=== PATIENT | female | born 1990 | race Caucasian/White ===

== ENCOUNTER 2022-12-17 17:02 | Inpatient (IN) | payer MEDICAID ==
[2022-12-17] MEDS ORDERED: Ondansetron 4 MG Tab.DIS PO PRN ×2 (18:09→18:13)
[2022-12-17] MEDS ORDERED: Sennosides/Docusate Sodium 50-8.6 MG Tab PO PRN (18:09)
[2022-12-17] MEDS ORDERED: Magnesium Hydroxide 400 MG/5 ML Susp 30 ML Cup PO PRN (18:09)
[2022-12-17] MEDS ORDERED: Acetaminophen 325 MG Tab PO PRN ×2 (18:09→18:13)
[2022-12-17] MEDS ORDERED: Ondansetron 4 MG/2 ML SDV IV PRN (18:13)
[2022-12-17] MEDS ORDERED: Melatonin 3 MG Tab PO PRN (18:13)
[2022-12-17] MEDS: Ondansetron 4 MG/2 ML SDV IV PRN (18:33)
[2022-12-17] MEDS ORDERED: Ampicillin/Sulbactam Na 3 GM in Sodium Chloride 0.9% 100 ML IV SCH (19:00)
[2022-12-17] MEDS: Sodium Chloride 0.9% 1,000 ML IV SCH (19:36)
[2022-12-17] MEDS: Meropenem 1 GM in Sodium Chloride 0.9% 100 ML IV SCH (19:38)
[2022-12-17] MEDS: Pantoprazole 40 MG Tab.CR PO SCH (19:39)
[2022-12-17] MEDS: fentaNYL 50 MCG/ML SDV IVPUSH PRN (19:39)
[2022-12-17] MEDS: Sucralfate 1 GM Tab PO SCH (21:29)
[2022-12-17] MEDS ORDERED: Ketorolac 30 MG/ML SDV IM ONE (22:00)
[2022-12-18] MEDS: fentaNYL 50 MCG/ML SDV IVPUSH PRN (01:18)
[2022-12-18] MEDS: Ondansetron 4 MG/2 ML SDV IV PRN (01:18)
[2022-12-18] MEDS ORDERED: hydrOXYzine HCL 100 MG/2 ML SDV IM PRN (01:31)
[2022-12-18] MEDS ORDERED: LORazepam 2 MG/ML SDV IVPUSH ONE (02:45)
[2022-12-18] MEDS ORDERED: HYDROmorphone/Normal Saline 6 MG/30 ML PCA Vial IV PRN (03:59)
[2022-12-18] MEDS: Meropenem 1 GM in Sodium Chloride 0.9% 100 ML IV SCH ×3 (04:13→20:01)
[2022-12-18] MEDS: Sodium Chloride 0.9% 1,000 ML IV SCH (04:13)
[2022-12-18 04:35] LABS: BASOPHILS ABSOLUTE AUTO 0.05 K/uL (0.00-0.10); BASOPHILS PERCENT AUTO 0.3 % (0.1-1.3); EOSINOPHILS ABSOLUTE AUTO 0.05 K/uL (0.00-0.40); EOSINOPHILS PERCENT AUTO 0.3 % (0.0-5.4); HEMATOCRIT 33.4 % (34.3-46.0); HEMOGLOBIN 10.1 g/dL (11.2-15.5); IMMATURE GRAN PERCENT AUTO 0.5 % (0.0-0.7); LYMPHOCYTES ABSOLUTE AUTO 1.16 K/uL (0.8-3.3); LYMPHOCYTES PERCENT AUTO 6.1 % (11.4-47.7); MEAN CORPUSCULAR HEMOGLOBIN 21.4 pg (31.6-35.5); MEAN CORPUSCULAR HGB CONC 30.2 g/dL (31.6-35.5); MEAN CORPUSCULAR VOLUME 70.6 fL (81.4-99.0); MONOCYTES ABSOLUTE AUTO 1.05 K/uL (0.20-0.90); MONOCYTES PERCENT AUTO 5.5 % (3.3-12.6); NEUTROPHILS PERCENT AUTO 87.3 % (40.0-78.1); PLATELET COUNT,PLT 333 K/uL (130-375); RED BLOOD CELL COUNT 4.73 M/uL (3.77-5.24)
[2022-12-18 04:42] LABS: CALCIUM 8.2 mg/dL (8.5-10.1); CREATININE 0.9 mg/dL (0.6-1.0); EST CRCL DRUG DOSING (CG) 67.09 mL/min; POTASSIUM,K 3.6 mmol/L (3.6-5.2)
[2022-12-18 04:47] LABS: ANION GAP 12.6 mmol/L (5.0-14.0)
[2022-12-18] MEDS ORDERED: Prochlorperazine 10 MG/2 ML SDV IVPUSH ONE (04:58)
[2022-12-18] MEDS: Sucralfate 1 GM Tab PO SCH (05:28)
[2022-12-18] MEDS: Pantoprazole 40 MG Tab.CR PO SCH (07:28)
[2022-12-18] MEDS ORDERED: Ketamine 500 MG/5 ML MDV IV SCH ×3 (07:30→08:00)
[2022-12-18 07:41] LABS: A/G RATIO 0.9 (1.2-2.2); BILIRUBIN DIRECT 0.23 mg/dL (0.0-0.2); BILIRUBIN INDIRECT 0.47; BILIRUBIN TOTAL 0.7 mg/dL (0.2-1.0); PROTEIN TOTAL,TP 6.4 g/dL (6.4-8.2)
[2022-12-18] MEDS ORDERED: Ketamine 15 MG in Sodium Chloride 0.9% 19.85 ML IV SCH (08:00)
[2022-12-18] MEDS ORDERED: Succinylcholine 200 MG/10 ML MDV ONE (08:32)
[2022-12-18] MEDS ORDERED: Glycopyrrolate 0.2 MG/ML 5 ML MDV ONE (08:32)
[2022-12-18] MEDS ORDERED: Neostigmine Methylsulfate 1 MG/ML 5 ML Syringe ONE (08:32)
[2022-12-18] MEDS ORDERED: Propofol 200 MG/20 ML SDV ONE (08:32)
[2022-12-18] MEDS ORDERED: Ondansetron 4 MG/2 ML SDV ONE (08:32)
[2022-12-18] MEDS ORDERED: Rocuronium 50 MG/5 ML Vial ONE (08:32)
[2022-12-18] MEDS ORDERED: Dexamethasone 4 MG/ML SDV ONE (08:32)
[2022-12-18] MEDS ORDERED: fentaNYL 250 MCG/5 ML SDV ONE ×2 (08:34→09:56)
[2022-12-18] MEDS ORDERED: Ketorolac 30 MG/ML SDV ONE (08:51)
[2022-12-18] MEDS ORDERED: Meropenem 500 MG SDV ONE (09:31)
[2022-12-18] MEDS ORDERED: Sodium Chloride 0.9% 10 ML ONE (09:31)
[2022-12-18] MEDS ORDERED: Lactated Ringers 1,000 ML ONE (09:34)
[2022-12-18] MEDS: Bupivacaine 0.5%/EPINEPHrine 1:200,000 50 ML MDV ONE ×2 (10:03→10:26)
[2022-12-18] MEDS: Lidocaine 1% 50 ML MDV ONE ×2 (10:04→10:26)
[2022-12-18] MEDS ORDERED: Sucralfate 1 GM Tab PO SCH (11:00)
[2022-12-18] MEDS: Hydrochlorothiazide 25 MG Tab PO SCH (11:59)
[2022-12-18] MEDS ORDERED: Ondansetron 4 MG/2 ML SDV IVPUSH PRN (12:13)
[2022-12-18] MEDS ORDERED: Buprenorphine/Naloxone 2-0.5 MG Tab.SL SL ONE (12:30)
[2022-12-18] MEDS: Buprenorphine/Naloxone 2-0.5 MG Tab.SL SL SCH (12:33)
[2022-12-18] MEDS ORDERED: Pantoprazole 40 MG Vial IV SCH (14:00)
[2022-12-18] MEDS: Lactated Ringers 1,000 ML IV SCH (14:12)
[2022-12-18] MEDS ORDERED: HYDROmorphone 1 MG/ML Syringe IV PRN (15:44)
[2022-12-18] MEDS: traMADol 50 MG Tab PO PRN ×2 (15:55→21:38)
[2022-12-18] MEDS: Acetaminophen 1,000 MG in Premix Bag 1 BAG IV SCH ×2 (15:57→21:38)
[2022-12-18] MEDS: Ibuprofen 600 MG Tab PO SCH ×2 (17:39→23:36)
[2022-12-19] MEDS: Lactated Ringers 1,000 ML IV SCH ×3 (00:27→20:42)
[2022-12-19] MEDS: Meropenem 1 GM in Sodium Chloride 0.9% 100 ML IV SCH ×3 (04:13→19:32)
[2022-12-19] MEDS: Acetaminophen 1,000 MG in Premix Bag 1 BAG IV SCH ×2 (05:12→09:05)
[2022-12-19] MEDS: Ibuprofen 600 MG Tab PO SCH ×3 (05:28→17:35)
[2022-12-19 05:29] LABS: BASOPHILS PERCENT AUTO 0.1 % (0.1-1.3); HEMATOCRIT 30.1 % (34.3-46.0); IMMATURE GRAN ABSOLUTE AUTO 0.06 K/uL (0.00-0.23); IMMATURE GRAN PERCENT AUTO 0.3 % (0.0-0.7); LYMPHOCYTES ABSOLUTE AUTO 1.24 K/uL (0.8-3.3); LYMPHOCYTES PERCENT AUTO 6.8 % (11.4-47.7); MEAN CORPUSCULAR HEMOGLOBIN 21.4 pg (31.6-35.5); MEAN CORPUSCULAR HGB CONC 29.9 g/dL (31.6-35.5); MEAN CORPUSCULAR VOLUME 71.5 fL (81.4-99.0); MONOCYTES ABSOLUTE AUTO 0.89 K/uL (0.20-0.90); MONOCYTES PERCENT AUTO 4.9 % (3.3-12.6); NEUTROPHILS ABSOLUTE AUTO 16.13 K/uL (1.0-7.6); NEUTROPHILS PERCENT AUTO 87.9 % (40.0-78.1); PLATELET COUNT,PLT 322 K/uL (130-375); RED BLOOD CELL COUNT 4.21 M/uL (3.77-5.24); WHITE BLOOD CELL COUNT,WBC 18.3 K/uL (3.2-11.0)
[2022-12-19 05:45] LABS: BASOPHILS ABSOLUTE AUTO 0.02 K/uL (0.00-0.10)
[2022-12-19 05:47] LABS: A/G RATIO 0.7 (1.2-2.2); ALANINE AMINOTRANSFERASE,ALT 53 U/L (12-78); ALBUMIN 2.4 g/dL (3.4-5.0); ALKALINE PHOSPHATASE 71 U/L (46-116); ASPARTATE AMNIOTRANSFERASE,AST 39 U/L (15-37); BILIRUBIN TOTAL 0.4 mg/dL (0.2-1.0); BLOOD UREA NITROGEN,BUN 12 mg/dL (7-18); CALCIUM 8.1 mg/dL (8.5-10.1); CARBON DIOXIDE,CO2 28 mmol/L (21-32); CHLORIDE,CL 104 mmol/L (100-108); CREATININE 0.8 mg/dL (0.6-1.0); EST CRCL DRUG DOSING (CG) 75.48 mL/min; ESTIMATED GFR 100 mL/min (>60); GLUCOSE RANDOM 149 mg/dL (74-106); MAGNESIUM 2.2 mg/dL (1.8-2.4); PHOSPHORUS 2.6 mg/dL (2.5-4.9); POTASSIUM,K 3.8 mmol/L (3.6-5.2); PROTEIN TOTAL,TP 5.9 g/dL (6.4-8.2); SODIUM,NA 137 mmol/L (140-148)
[2022-12-19 05:50] LABS: ANION GAP 8.8 mmol/L (5.0-14.0)
[2022-12-19] MEDS: Hydrochlorothiazide 25 MG Tab PO SCH (08:46)
[2022-12-19] MEDS: Buprenorphine/Naloxone 2-0.5 MG Tab.SL SL SCH (08:47)
[2022-12-19] MEDS: Pantoprazole 40 MG Tab.CR PO SCH (15:41)
[2022-12-19] MEDS: Acetaminophen 500 MG Tab PO SCH ×2 (15:41→22:03)
[2022-12-19] MEDS: traMADol 50 MG Tab PO PRN (19:30)
[2022-12-20] MEDS: Ibuprofen 600 MG Tab PO SCH ×2 (00:44→05:51)
[2022-12-20] MEDS: Acetaminophen 500 MG Tab PO SCH ×2 (04:12→10:10)
[2022-12-20] MEDS: Meropenem 1 GM in Sodium Chloride 0.9% 100 ML IV SCH (04:12)
[2022-12-20] MEDS: traMADol 50 MG Tab PO PRN (07:39)
[2022-12-20] MEDS: Pantoprazole 40 MG Tab.CR PO SCH (07:44)
[2022-12-20] MEDS ORDERED: Lactated Ringers 750 ML IV ONE (08:30)
[2022-12-20] MEDS: Buprenorphine/Naloxone 2-0.5 MG Tab.SL SL SCH (08:35)
[2022-12-20] MEDS: Hydrochlorothiazide 25 MG Tab PO SCH (08:36)
[2022-12-20] MEDS ORDERED: LORazepam 0.5 MG Tab PO SCH (09:00)
[2022-12-20] MEDS ORDERED: Doxycycline 100 MG Cap PO SCH (10:00)
== END 2022-12-20 12:52 | disposition home or self-care (01) | DRG 418 ==
LOC: JP.MS 17:02 → JP.2SS 12-18 12:01
PROVIDERS: ADMIT Registered Nurse; ATTEND Surgery
PROC: 0FT44ZZ Resection of Gallbladder, Percutaneous Endoscopic Approach (ICD-10-PCS; principal; 2022-12-17)
DX: K80.00 Calculus of gallbladder with acute cholecystitis without obstruction (principal); Z68.44 Body mass index [BMI] 60.0-69.9, adult; K76.0 Fatty (change of) liver, not elsewhere classified; R16.0 Hepatomegaly, not elsewhere classified; J45.909 Unspecified asthma, uncomplicated; F32.A Depression, unspecified; E66.9 Obesity, unspecified; K82.A1 Gangrene of gallbladder in cholecystitis; F17.210 Nicotine dependence, cigarettes, uncomplicated; G47.33 Obstructive sleep apnea (adult) (pediatric); K21.9 Gastro-esophageal reflux disease without esophagitis; F90.9 Attention-deficit hyperactivity disorder, unspecified type; F41.1 Generalized anxiety disorder; F41.0 Panic disorder [episodic paroxysmal anxiety]; F11.91 Opioid use, unspecified, in remission; Z88.1 Allergy status to other antibiotic agents; Z88.0 Allergy status to penicillin; Z91.040 Latex allergy status; Z79.899 Other long term (current) drug therapy; Z90.89 Acquired absence of other organs; Z98.890 Other specified postprocedural states
CPT/HCPCS: 36415; 80048; 80053; 80076; 81025; 83735; 84100; 85025; 87070; 87075; 87205; 88304; A9270-GY; C9113; J0131; J0171; J0330; J0780; J1100; J1170; J1885; J2001; J2060; J2185; J2405; J2704; J2710; J2795; J3010; J3410; J3490; J7030; J7120; U0002